=== PATIENT | male | born 1965 | race Caucasian/White ===

== ENCOUNTER 2020-06-29 21:10 | Emergency (ER) | payer OTHER ==
[~2020-06-29] VITALS: Ht 188 cm; Wt 86.2 kg
[2020-06-30] MEDS ORDERED: MECLIZINE HCL25 MG PO (01:18)
== END 2020-06-30 01:30 | disposition home or self-care (01) ==
LOC: ER 21:10
DX: R42 Dizziness and giddiness (principal); Z03.818 Encounter for observation for suspected exposure to other biological agents ruled out